=== PATIENT | male | born 1950 | race Caucasian/White ===

== ENCOUNTER 2017-04-04 03:18 | Emergency (ER) | payer OTHER, MEDICARE ==
[~2017-04-04] VITALS: Ht 177.8 cm; Wt 102.1 kg
[2017-04-04 03:18] VITALS: BP_SYST 165
[~2017-04-04 03:18] MED LIST: ASPI-1063; FLUO10CA65; LIP10
[2017-04-04] MEDS ORDERED: traMADol HCL HCL 50 MG TABLET (ULTRAM) PO ONE (04:30)
[2017-04-04 04:48] VITALS: BP_SYST 157
== END 2017-04-04 04:48 | disposition home or self-care (01) ==
LOC: SED 03:18
DX: B02.9 Zoster without complications (principal); E78.5 Hyperlipidemia, unspecified; I10 Essential (primary) hypertension; Z79.82 Long term (current) use of aspirin
CPT/HCPCS: 99283